=== PATIENT | male | born 1960 ===

== ENCOUNTER 2023-03-01 16:06 | Inpatient (IN) | payer OTHER ==
[~2023-03-01] VITALS: Ht 167.6 cm; Wt 68.9 kg
[2023-03-02] MEDS ORDERED: GLIMEPIRIDE1 MG (13:31)
[2023-03-02] MEDS ORDERED: TREXALL5 MG PO (13:31)
[2023-03-02] MEDS ORDERED: SOLIQUA 100 UNIT3 ML (13:31)
[2023-03-02] MEDS ORDERED: CHILDREN'S ASPI81 MG PO (13:31)
[2023-03-02] MEDS ORDERED: NIFEDIPINE ER30 MG PO (13:32)
[2023-03-02] MEDS ORDERED: ATORVASTATIN CA10 MG PO (13:32)
[2023-03-02] MEDS ORDERED: COZAAR100 MG PO (13:32)
[2023-03-09] MEDS ORDERED: TAPAZOLE5 MG (10:31)
[2023-03-09] MEDS ORDERED: LOSARTAN POTAS100 MG (10:31)
[2023-03-11] MEDS ORDERED: TRAM1TAB98 PO (12:09)
[2023-03-11] MEDS ORDERED: PEPCID AC10 MG PO (12:09)
[2023-03-11] MEDS ORDERED: LEVSIN/SL0.125 MG SL (12:12)
[2023-03-11] MEDS ORDERED: LIBRIUM PO (12:50)
== END 2023-03-11 16:10 | disposition home or self-care (01) | DRG 330 ==
LOC: SURG 03-09 07:43 → O/R 03-09 07:43 → SURG 03-09 10:30
PROVIDERS: ADMIT Surgery; ATTEND Surgery
PROC: 07BC4ZZ Excision of Pelvis Lymphatic, Percutaneous Endoscopic Approach (ICD-10-PCS; 2023-03-09)
PROC: 07BB4ZZ Excision of Mesenteric Lymphatic, Percutaneous Endoscopic Approach (ICD-10-PCS; 2023-03-09)
PROC: 0DTF4ZZ Resection of Right Large Intestine, Percutaneous Endoscopic Approach (ICD-10-PCS; principal; 2023-03-09 10:30)
DX: D12.2 Benign neoplasm of ascending colon (principal); N39.0 Urinary tract infection, site not specified; R59.0 Localized enlarged lymph nodes; D64.89 Other specified anemias; E11.9 Type 2 diabetes mellitus without complications; I11.9 Hypertensive heart disease without heart failure; F10.90 Alcohol use, unspecified, uncomplicated; Z79.4 Long term (current) use of insulin